=== PATIENT | female | born 1945 | race Caucasian/White ===

== ENCOUNTER → 2016-08-19 | Outpatient (CLI) | payer MEDICARE, OTHER | LOC: KOH-I 09:00 | DX: M66.371 Spontaneous rupture of flexor tendons, right ankle and foot (principal); M19.071 Primary osteoarthritis, right ankle and foot; M25.471 Effusion, right ankle; R60.0 Localized edema | CPT/HCPCS: 73721 ==

== ENCOUNTER → 2016-09-06 | Outpatient (CLI) | payer MEDICARE, OTHER | LOC: MAMO 09-02 11:40 | DX: Z12.31 Encounter for screening mammogram for malignant neoplasm of breast (principal); M81.0 Age-related osteoporosis without current pathological fracture; E55.9 Vitamin D deficiency, unspecified | CPT/HCPCS: 77080; G0202 ==

== ENCOUNTER 2020-05-25 16:11 | Emergency (ER) | payer MEDICARE, OTHER ==
[~2020-05-25 16:11] MED LIST: CYMBALTA 30 MG30 MG PO; DESYREL 50 MG T50 MG PO; ECOTRIN325 MG PO; ELIQUIS 2.5 MG2.5 MG PO; ELIQUIS5 MG PO; FOLIC ACID 1 MG1 MG PO; IMURAN TAB 50 M50 MG PO; LOPRESSOR 25 MG25 MG PO; NORVASC10 MG PO; PERCOCET 5/325 T1 EA PO; PROTONIX40 MG PO; SINGULAIR10 MG PO; SYNTHROID137 MCG PO; TOPROL XL25 MG PO; ZYRTEC10 MG PO
[2020-05-25 19:40] LABS: HEMOGLOBIN 12.4 gm/dl (12.3-15.3); RED BLOOD COUNT 4.54 M/UL (4.00-5.10); WHITE BLOOD COUNT 8.7 K/UL (4.5-11.0)
[2020-05-25 20:03] LABS: BUN/CREATININE RATIO 25 (0-10)
[2020-05-25] MEDS ORDERED: AZITHROMYCIN250 MG PO (21:32)
== END 2020-05-25 23:55 | disposition home or self-care (01) ==
LOC: ER1 16:11
PROVIDERS: Family Medicine
DX: Z53.8 Procedure and treatment not carried out for other reasons (principal)
CPT/HCPCS: 71045; 80053; 82550; 82553; 83605; 83874; 83880; 84484; 85025; 87040; 93005; 99284; M0239

== ENCOUNTER 2020-05-27 17:24 | Inpatient (IN) | payer MEDICARE, OTHER ==
[~2020-05-27] VITALS: Ht 152.4 cm; Wt 65.0 kg
[~2020-05-27 17:24] MED LIST changes: +AZITHROMYCIN250 MG PO
[2020-05-27 18:42] LABS: HEMOGLOBIN 13.2 gm/dl (12.3-15.3); RED BLOOD COUNT 4.83 M/UL (4.00-5.10)
[2020-05-27 18:56] LABS: WHITE BLOOD COUNT 11.2 K/UL (4.5-11.0)
[2020-05-27 19:01] LABS: BUN/CREATININE RATIO 32 (0-10)
[2020-05-28 05:32] LABS: WHITE BLOOD COUNT 10.7 K/UL (4.5-11.0)
[2020-05-28 05:37] LABS: HEMOGLOBIN 11.2 gm/dl (12.3-15.3); RED BLOOD COUNT 3.99 M/UL (4.00-5.10)
[2020-05-28 05:59] LABS: BUN/CREATININE RATIO 30 (0-10)
[2020-05-29 06:55] LABS: HEMOGLOBIN 11.5 gm/dl (12.3-15.3); RED BLOOD COUNT 4.19 M/UL (4.00-5.10); WHITE BLOOD COUNT 12.4 K/UL (4.5-11.0)
[2020-05-29 07:22] LABS: BUN/CREATININE RATIO 30 (0-10)
[2020-05-30 04:37] LABS: HEMOGLOBIN 11.6 gm/dl (12.3-15.3); RED BLOOD COUNT 4.22 M/UL (4.00-5.10); WHITE BLOOD COUNT 9.3 K/UL (4.5-11.0)
[2020-05-30 05:30] LABS: BUN/CREATININE RATIO 44 (0-10)
[2020-05-31 05:16] LABS: HEMOGLOBIN 11.3 gm/dl (12.3-15.3); RED BLOOD COUNT 4.16 M/UL (4.00-5.10); WHITE BLOOD COUNT 10.2 K/UL (4.5-11.0)
[2020-05-31 05:54] LABS: BUN/CREATININE RATIO 54 (0-10)
[2020-06-01 06:38] LABS: HEMOGLOBIN 11.5 gm/dl (12.3-15.3); RED BLOOD COUNT 4.19 M/UL (4.00-5.10); WHITE BLOOD COUNT 9.6 K/UL (4.5-11.0)
[2020-06-01 06:58] LABS: BUN/CREATININE RATIO 52 (0-10)
[2020-06-02 04:55] LABS: HEMOGLOBIN 11.9 gm/dl (12.3-15.3); RED BLOOD COUNT 4.4 M/UL (4.00-5.10)
[2020-06-02 05:27] LABS: BUN/CREATININE RATIO 58 (0-10)
[2020-06-03 04:51] LABS: HEMOGLOBIN 12.8 gm/dl (12.3-15.3); RED BLOOD COUNT 4.71 M/UL (4.00-5.10)
[2020-06-03 04:54] LABS: WHITE BLOOD COUNT 5.8 K/UL (4.5-11.0)
[2020-06-03 05:06] LABS: BUN/CREATININE RATIO 60 (0-10)
--- NOTE | 2020-06-03 15:35 | NUR ---
20g PIV placed in the right forearm. Aspirates and flushes well.
--- NOTE | 2020-06-03 15:38 | NUR ---
18g x 10cm midline placed in the right brachial vein. Aspirates and flushes well. Biopatch placed over insertion site and transparent dressing applied.
[2020-06-04 05:12] LABS: HEMOGLOBIN 12.3 gm/dl (12.3-15.3); RED BLOOD COUNT 4.5 M/UL (4.00-5.10); WHITE BLOOD COUNT 6.9 K/UL (4.5-11.0)
[2020-06-04 05:28] LABS: BUN/CREATININE RATIO 57 (0-10)
[2020-06-05 05:32] LABS: HEMOGLOBIN 12.1 gm/dl (12.3-15.3); RED BLOOD COUNT 4.47 M/UL (4.00-5.10); WHITE BLOOD COUNT 6.4 K/UL (4.5-11.0)
[2020-06-05 06:05] LABS: BUN/CREATININE RATIO 56 (0-10)
[2020-06-06 04:53] LABS: HEMOGLOBIN 12.8 gm/dl (12.3-15.3); RED BLOOD COUNT 4.7 M/UL (4.00-5.10)
[2020-06-06 04:58] LABS: WHITE BLOOD COUNT 8.4 K/UL (4.5-11.0)
[2020-06-06 05:19] LABS: BUN/CREATININE RATIO 72 (0-10)
[2020-06-07 07:17] LABS: HEMOGLOBIN 12.9 gm/dl (12.3-15.3); RED BLOOD COUNT 4.69 M/UL (4.00-5.10); WHITE BLOOD COUNT 8.7 K/UL (4.5-11.0)
[2020-06-07 07:34] LABS: BUN/CREATININE RATIO 47 (0-10)
[2020-06-08 10:42] LABS: BUN/CREATININE RATIO 43 (0-10)
[2020-06-09 09:24] LABS: BUN/CREATININE RATIO 47 (0-10)
[2020-06-10 04:40] LABS: HEMOGLOBIN 12.2 gm/dl (12.3-15.3); RED BLOOD COUNT 4.56 M/UL (4.00-5.10); WHITE BLOOD COUNT 10.1 K/UL (4.5-11.0)
[2020-06-10 05:08] LABS: BUN/CREATININE RATIO 57 (0-10)
[2020-06-11 05:51] LABS: HEMOGLOBIN 12.2 gm/dl (12.3-15.3); RED BLOOD COUNT 4.44 M/UL (4.00-5.10); WHITE BLOOD COUNT 10.2 K/UL (4.5-11.0)
[2020-06-11 06:11] LABS: BUN/CREATININE RATIO 54 (0-10)
[2020-06-12 03:53] LABS: HEMOGLOBIN 12.1 gm/dl (12.3-15.3); RED BLOOD COUNT 4.47 M/UL (4.00-5.10); WHITE BLOOD COUNT 10.1 K/UL (4.5-11.0)
[2020-06-12 04:10] LABS: BUN/CREATININE RATIO 57 (0-10)
[2020-06-13 05:49] LABS: HEMOGLOBIN 12.4 gm/dl (12.3-15.3); RED BLOOD COUNT 4.53 M/UL (4.00-5.10); WHITE BLOOD COUNT 11.6 K/UL (4.5-11.0)
[2020-06-13 05:51] LABS: BUN/CREATININE RATIO 59 (0-10)
[2020-06-14 07:32] LABS: HEMOGLOBIN 12.8 gm/dl (12.3-15.3); RED BLOOD COUNT 4.77 M/UL (4.00-5.10); WHITE BLOOD COUNT 10.3 K/UL (4.5-11.0)
[2020-06-14 07:50] LABS: BUN/CREATININE RATIO 37 (0-10)
[2020-06-15 04:30] LABS: HEMOGLOBIN 11.8 gm/dl (12.3-15.3); RED BLOOD COUNT 4.34 M/UL (4.00-5.10); WHITE BLOOD COUNT 8.6 K/UL (4.5-11.0)
[2020-06-15 04:59] LABS: BUN/CREATININE RATIO 48 (0-10)
--- NOTE | 2020-06-15 11:18 | NUR ---
PT O2 SAT 70'S ON ROOM AIR.
[2020-06-15] MEDS ORDERED: MYCOSTATIN100000 UTS PO (12:47)
[2020-06-15] MEDS ORDERED: DIGOXIN125 MCG PO (12:47)
[2020-06-15] MEDS ORDERED: MEDROL DOSEPAK 24 MG PO (12:47)
[2020-06-16] MEDS ORDERED: PREDNISONE10 MG PO (08:52)
== END 2020-06-16 13:12 | disposition home health service (06) | DRG 871 ==
LOC: ER1 17:24 → CCU 18:38 → 2 EAST 18:38 → MED SURG 4 18:38 → ZEROF 18:38 → CCU 23:54 → MED SURG 4 06-12 16:59 → 2 EAST 06-13 17:39
PROVIDERS: Internal Medicine; Internal Medicine Pulmonary Disease; Physician Assistant Medical; Preventive Medicine Occupational Medicine; ADMIT Internal Medicine
PROC: XW13325 Transfusion of Convalescent Plasma (Nonautologous) into Peripheral Vein, Percutaneous Approach, New Technology Group 5 (ICD-10-PCS; principal; 2020-05-27)
PROC: XW033E5 Introduction of Remdesivir Anti-infective into Peripheral Vein, Percutaneous Approach, New Technology Group 5 (ICD-10-PCS; 2020-05-27)
PROC: 8E0ZXY6 Isolation (ICD-10-PCS; 2020-05-27)
DX: A41.89 Other specified sepsis (principal); U07.1 COVID-19; J80 Acute respiratory distress syndrome; J12.82 Pneumonia due to coronavirus disease 2019; J15.9 Unspecified bacterial pneumonia; E87.1 Hypo-osmolality and hyponatremia; I48.20 Chronic atrial fibrillation, unspecified; I10 Essential (primary) hypertension; E11.9 Type 2 diabetes mellitus without complications; E03.9 Hypothyroidism, unspecified; F41.9 Anxiety disorder, unspecified; I48.0 Paroxysmal atrial fibrillation; R00.0 Tachycardia, unspecified; Z96.641 Presence of right artificial hip joint; K21.9 Gastro-esophageal reflux disease without esophagitis; Z79.01 Long term (current) use of anticoagulants; Z79.899 Other long term (current) drug therapy; Z90.710 Acquired absence of both cervix and uterus; Z88.6 Allergy status to analgesic agent; Z88.1 Allergy status to other antibiotic agents; Z88.5 Allergy status to narcotic agent; Z88.0 Allergy status to penicillin; Z88.8 Allergy status to other drugs, medicaments and biological substances; Z28.21 Immunization not carried out because of patient refusal
CPT/HCPCS: ECHO; 36415; 36600; 71045; 71250; 80048; 80053; 82550; 82553; 82728; 82803; 83605; 83615; 83690; 83735; 83874; 83880; 84100; 84484; 85025; 85027; 85379; 85384; 85610; 85652; 86140; 86900; 86901; 86927; 87040; 87635; 90471; 93005; 93306; 94640; 94660; 94664; 94760; 96365; 96366; 96367; 96375; 97110; 97110-GP-CQ; 97116-GP-CQ; 97162; 97164; 97166; 97168; 97530; 97530-GP-CQ; 99284; 99285; A6212; C1751; J0456; J0692; J1100; J1160; J1205; J1940; J7030; J7040; J7050; M0239; U0002

== ENCOUNTER → 2021-01-05 | Outpatient (CLI) | payer MEDICARE, OTHER ==
[~2021-01-05] MED LIST changes: +DIGOXIN125 MCG PO; +MEDROL DOSEPAK 24 MG PO; +MYCOSTATIN100000 UTS PO; +PREDNISONE10 MG PO
== END ==
LOC: RAD 15:35
DX: M79.643 Pain in unspecified hand (principal)
CPT/HCPCS: 73130

== ENCOUNTER → 2021-01-28 | Outpatient (CLI) | payer MEDICARE, OTHER | LOC: EXRD 13:00 | DX: M81.0 Age-related osteoporosis without current pathological fracture (principal); M85.89 Other specified disorders of bone density and structure, multiple sites | CPT/HCPCS: 77080 ==

== ENCOUNTER → 2021-02-18 | Outpatient (CLI) | payer MEDICARE, OTHER ==
[2021-02-20 15:12] LABS: RNP ANTIBODIES <0.2 AI (0.0-0.9); SJOGREN'S ANTI-SS-A <0.2 AI (0.0-0.9); SJOGREN'S ANTI-SS-B <0.2 AI (0.0-0.9); SMITH ANTIBODIES <0.2 AI (0.0-0.9)
[2021-02-22 16:11] LABS: ALDOLASE 8.5 U/L (3.3-10.3)
== END ==
LOC: LAB 16:43
PROVIDERS: Internal Medicine
DX: M54.5 Low back pain (principal); M81.0 Age-related osteoporosis without current pathological fracture; Z79.899 Other long term (current) drug therapy; M25.50 Pain in unspecified joint; R53.83 Other fatigue; M62.838 Other muscle spasm; M47.816 Spondylosis without myelopathy or radiculopathy, lumbar region
CPT/HCPCS: 72100; 80162; 82085; 82550; 83735; 83970; 84100; 85652; 86140; 86235

== ENCOUNTER → 2021-03-31 | Outpatient (CLI) | payer MEDICARE, OTHER | LOC: KOH-I 11:30 | DX: R59.1 Generalized enlarged lymph nodes (principal); R13.10 Dysphagia, unspecified | CPT/HCPCS: 76536 ==

== ENCOUNTER → 2021-06-11 | Outpatient (CLI) | payer MEDICARE, OTHER ==
[2021-06-11 13:27] LABS: HEMOGLOBIN 13.4 gm/dl (12.3-15.3); RED BLOOD COUNT 4.78 M/UL (4.00-5.10)
[2021-06-11 13:57] LABS: BUN/CREATININE RATIO 22 (0-10)
== END ==
LOC: LAB 13:02
PROVIDERS: Family Medicine
DX: E78.5 Hyperlipidemia, unspecified (principal); I10 Essential (primary) hypertension; E03.9 Hypothyroidism, unspecified; E55.9 Vitamin D deficiency, unspecified
CPT/HCPCS: 36415; 80053; 80061; 84439; 84443; 85027

== ENCOUNTER → 2021-08-11 | Outpatient (CLI) | payer MEDICARE, OTHER | LOC: KOH-I 15:24 → EXRD 08-16 14:00 | DX: R60.0 Localized edema (principal) | CPT/HCPCS: 93970 ==

== ENCOUNTER → 2021-08-13 | Outpatient (CLI) | payer MEDICARE, OTHER ==
[2021-08-13 16:45] LABS: HEMOGLOBIN 14.6 gm/dl (12.3-15.3); RED BLOOD COUNT 4.88 M/UL (4.00-5.10); WHITE BLOOD COUNT 8.7 K/UL (4.5-11.0)
[2021-08-13 17:11] LABS: BUN/CREATININE RATIO 29 (0-10)
== END ==
LOC: LAB 16:16
PROVIDERS: Family Medicine
DX: M79.671 Pain in right foot (principal); M79.672 Pain in left foot; M79.604 Pain in right leg; M79.605 Pain in left leg; E55.9 Vitamin D deficiency, unspecified; E03.9 Hypothyroidism, unspecified; I10 Essential (primary) hypertension; R73.9 Hyperglycemia, unspecified
CPT/HCPCS: 36415; 73630; 80053; 80061; 83036; 83735; 84439; 84443; 85027

== ENCOUNTER → 2021-08-20 | Outpatient (CLI) | payer MEDICARE, OTHER | LOC: MAMO 09:54 | DX: Z12.31 Encounter for screening mammogram for malignant neoplasm of breast (principal) | CPT/HCPCS: 77063; 77067 ==

== ENCOUNTER 2021-08-27 12:08 | Emergency (ER) | payer MEDICARE, OTHER ==
[2021-08-27 12:49] LABS: HEMOGLOBIN 13.1 gm/dl (12.3-15.3); RED BLOOD COUNT 4.41 M/UL (4.00-5.10); WHITE BLOOD COUNT 8.3 K/UL (4.5-11.0)
[2021-08-27 13:14] LABS: BUN/CREATININE RATIO 19 (0-10)
== END 2021-08-27 14:30 | disposition home or self-care (01) ==
LOC: ER1 12:08
PROVIDERS: Student in an Organized Health Care Education/Training Program
DX: M79.81 Nontraumatic hematoma of soft tissue (principal); I10 Essential (primary) hypertension; I48.91 Unspecified atrial fibrillation; Z88.8 Allergy status to other drugs, medicaments and biological substances; Z88.1 Allergy status to other antibiotic agents; Z79.01 Long term (current) use of anticoagulants
CPT/HCPCS: 80053; 85025; 93971; 99284

== ENCOUNTER → 2021-12-07 | Outpatient (CLI) | payer MEDICARE, OTHER | LOC: EROP 11:43 | DX: U07.1 COVID-19 (principal); Z23 Encounter for immunization; E11.9 Type 2 diabetes mellitus without complications; I10 Essential (primary) hypertension; J98.4 Other disorders of lung | CPT/HCPCS: M0222; Q0222 ==

== ENCOUNTER → 2021-12-22 | Outpatient (CLI) | payer MEDICARE, OTHER | LOC: EXRD 11:12 | DX: U07.1 COVID-19 (principal) | CPT/HCPCS: 71046 ==